=== PATIENT | female | born 1935 | race Caucasian/White ===

== ENCOUNTER 2017-03-01 11:56 | Emergency (ER) | payer MEDICARE, MEDICAID ==
[~2017-03-01] VITALS: Ht 147.3 cm; Wt 43.1 kg
[~2017-03-01 11:56] MED LIST: AMLO10TA4 PO; ATEN25TA PO; IBUP-1958 PO; LOSA1TAB2 PO; PRIM50TA10 PO; ROSU10TA PO
[2017-03-01] MEDS ORDERED: NEOMY/BACITRA/POLYMYXIN B OINT UD PACKET TP ONE ×2 (12:30→12:31)
--- NOTE | 2017-03-01 12:31 | NUR ---
PATIENT WAS SEEN BY MD FOR LACERATION NEAR HER TOE ON HER FOOT. AREA WAS CLEANSED. TRIPLE ABX OITNEMNT APPLIED, BANDAGE APPLIED. DC, WOUND AND FOLLOW UP INSTRUCTIONS GIVEN AND EXPLAINED TO PT AND WHO STATES THEY UNDERSTANDS ALL INSTRUCTIONS.
== END 2017-03-01 12:33 | disposition home or self-care (01) ==
LOC: ER 12:05
DX: S91.131A Puncture wound without foreign body of right great toe without damage to nail, initial encounter (principal); E78.5 Hyperlipidemia, unspecified; I10 Essential (primary) hypertension; Z85.3 Personal history of malignant neoplasm of breast; Z79.899 Other long term (current) drug therapy; W26.0XXA Contact with knife, initial encounter; Y93.G3 Activity, cooking and baking; Y92.89 Other specified places as the place of occurrence of the external cause; Y99.8 Other external cause status
CPT/HCPCS: A4663

== ENCOUNTER 2019-09-25 12:18 | Emergency (ER) | payer MEDICARE, MEDICAID ==
[~2019-09-25] VITALS: Ht 149.9 cm; Wt 45.8 kg
--- NOTE | 2019-09-25 12:34 | NUR ---
PATIENT WAS MSE BY DR ENCARNACION IN ROOM 01B. PATIENT A & O X4.
[2019-09-25] MEDS ORDERED: LIDOCAINE HCL 2% 20 ML VIAL IJ ONE (12:45)
--- NOTE | 2019-09-25 13:34 | NUR ---
Patient discharged to home in stable conditon. Written and verbal after care instructions given. Patient verbalizes understanding of instructions. Slow steady gait . No c/o CP. No SOB.
[2019-09-25 13:44] VITALS: BP 154/67
[2019-09-25] MEDS ORDERED: NEOMY/BACITRA/POLYMYXIN B OINT UD PACKET TP ONE ×2 (13:45)
== END 2019-09-25 13:44 | disposition home or self-care (01) ==
LOC: ER 12:18
DX: S91.201A Unspecified open wound of right great toe with damage to nail, initial encounter (principal); I10 Essential (primary) hypertension; E78.5 Hyperlipidemia, unspecified; Z79.899 Other long term (current) drug therapy; W22.8XXA Striking against or struck by other objects, initial encounter; Y93.89 Activity, other specified; Y92.89 Other specified places as the place of occurrence of the external cause; Y99.8 Other external cause status
CPT/HCPCS: 73620; A4217; A4663

== ENCOUNTER 2023-05-08 16:35 | Inpatient (IN) | payer MEDICARE, OTHER ==
[~2023-05-08] VITALS: Ht 152.4 cm; Wt 49.9 kg
[~2023-05-08 16:35] MED LIST changes: +AMLO-212 PO; -AMLO10TA4 PO; +ASPI81TA31 PO; -ATEN25TA PO; +AZIL1TAB3 PO; +CARBIDOPA PO; -IBUP-1958 PO; +LEVODOPA PO; -LOSA1TAB2 PO; -PRIM50TA10 PO; -ROSU10TA PO
[2023-05-08] MEDS ORDERED: QUET400T53 PO (17:05)
[2023-05-08] MEDS ORDERED: VITAMIN K2 +D3 (17:05)
[2023-05-08 18:40] LABS: BASOPHILS % (AUTO) 0.5 % (0.0-2.0); EOSINOPHILS # (AUTO) 0.2 K/uL (0.0-0.7); EOSINOPHILS % (AUTO) 2.5 % (0.0-7.0); HEMOGLOBIN 10.9 g/dL (10.9-14.3); MEAN CORPUSCULAR HEMOGLOBIN 32.3 uug (24.7-32.8); MEAN CORPUSCULAR HGB CONC 34 g/dL (32.3-35.6); MONOCYTES # (AUTO) 0.7 K/uL (0.1-1.30); MONOCYTES % (AUTO) 9.3 % (0.0-11.0); NEUTROPHILS # (AUTO) 4.9 K/uL (1.8-8.9); NEUTROPHILS % (AUTO) 62.7 % (38.5-71.5); PLATELET COUNT (AUTO) 326 K/uL (179-408); RED BLOOD CELL COUNT(AUTO) 3.37 MIL/uL (3.63-4.92); RED CELL DISTRIBUTION WIDTH 13.9 % (12.3-17.7); WHITE BLOOD COUNT (AUTO) 7.9 K/uL (3.8-11.8)
[2023-05-08 18:46] LABS: DIFFERENTIAL COMMENT 1
[2023-05-08 18:56] LABS: ALANINE AMINOTRANSFERASE 15 U/L (14-59); ALBUMIN 3.5 g/dL (3.4-5.0); ALKALINE PHOSPHATASE 54 U/L (50-136); ASPARTATE AMINOTRANSFERASE 14 U/L (15-37); BILIRUBIN,DIRECT 0.1 mg/dL (0.0-0.2); BILIRUBIN,TOTAL 0.2 mg/dL (0.2-1.0); CALCIUM 9.6 mg/dL (8.5-10.1); CARBON DIOXIDE 29 mmol/L (21-32); CHLORIDE 105 mmol/L (98-107); CREATININE 1.2 mg/dL (0.6-1.3); GLUCOSE 111 mg/dL (74-106); POTASSIUM 3.7 mmol/L (3.5-5.1); SODIUM SERUM 144 mmol/L (136-145); TOTAL PROTEIN, SERUM 7.2 g/dL (6.4-8.2); UREA NITROGEN, BLOOD 44 mg/dL (7-18)
[2023-05-08 19:10] LABS: ETHANOL < 3 MG/DL (0-10)
[2023-05-08 19:20] LABS: ACETAMINOPHEN < 2.0 ug/mL (10-30)
[2023-05-08] MEDS ORDERED: IV NS 1000 ML 1,000 ML IV ONE (20:30)
[2023-05-08 21:06] LABS: *BILIRUBIN,URIN NEGATIVE (NEGATIVE); *BLOOD, URINE NEGATIVE (NEGATIVE); *CLARITY,URINE CLEAR (CLEAR); *COLOR,URINE YELLOW (YELLOW); *KETONES,URINE NEGATIVE (NEGATIVE); *PROTEIN,URINE NEGATIVE (NEGATIVE); *UROBILINOGEN,URINE 0.2 E.U./dl (NORMAL); LEUKOCYTE ESTERASE ,URINE TRACE (NEGATIVE); NITRITE, URINE NEGATIVE (NEGATIVE); PH,URINE 5.5 (5.0-8.0); UGLUCOSE NEGATIVE (NEGATIVE)
[2023-05-08 21:10] LABS: BACTERIA,URINE FEW /HPF (NONE SEEN); RBC,URINE 0-3 /HPF (0-3); SQUAMOUS EPITHELIAL CELL,UR FEW /HPF (NONE SEEN)
[2023-05-08 21:19] LABS: *AMPHETAMINE, URINE NEGATIVE (NEGATIVE); *BARBITURATE, URINE NEGATIVE (NEGATIVE); *BENZODIAZEPINE, URINE NEGATIVE (NEGATIVE); *CANNABINOID, URINE NEGATIVE (NEGATIVE); *COCCAINE, URINE NEGATIVE (NEGATIVE); *OPIATE, URINE NEGATIVE (NEGATIVE); *PHENCYCLIDINE SCREEN,URINE NEGATIVE (NEGATIVE)
[2023-05-08 21:23] LABS: FENTANYL, URINE NEGATIVE (NEGATIVE)
[2023-05-08] MEDS ORDERED: SULFAMETH/TRIMETH 800/160 MG TABLET PO ONE (21:45)
[2023-05-08] MEDS ORDERED: SULFAMETH/TRIMETH 800/160 MG TABLET ONE (21:48)
[2023-05-09] MEDS ORDERED: QUETIAPINE FUMARATE 200 MG TABLET ONE (00:25)
[2023-05-09] MEDS ORDERED: QUETIAPINE FUMARATE 25 MG TABLET PO ONE (00:30)
[2023-05-09] MEDS ORDERED: diphenhydrAMINE 50 MG/1 ML VIAL ONE (00:34)
[2023-05-09] MEDS ORDERED: LORAZEPAM 2 MG/1 ML VIAL ONE (00:35)
[2023-05-09] MEDS ORDERED: HALOPERIDOL LACTATE 5 MG/1 ML VIAL ONE (00:35)
[2023-05-09] MEDS ORDERED: diphenhydrAMINE 50 MG/1 ML VIAL IM ONE (00:45)
[2023-05-09] MEDS ORDERED: LORAZEPAM 2 MG/1 ML VIAL IM ONE (00:45)
[2023-05-09] MEDS ORDERED: HALOPERIDOL LACTATE 5 MG/1 ML VIAL IM ONE (00:45)
[2023-05-09 01:20] VITALS: BP 136/45; TEMP 97.7; O2SAT 96
[2023-05-09] MEDS ORDERED: ACETAMINOPHEN 325 MG TABLET PO PRN (02:00)
[2023-05-09] MEDS ORDERED: MAG HYDROX/AL HYDROX/SIMETH 30 ML LIQUID UDC PO PRN (02:00)
[2023-05-09] MEDS ORDERED: MAGNESIUM HYDROXIDE 30 ML LIQUID UDC PO PRN (02:00)
[2023-05-09] MEDS ORDERED: BLOOD SUGAR DIAGNOSTIC 1 EACH STRIP VI ONE (02:00)
[2023-05-09] MEDS ORDERED: CARB1TAB31 PO (05:57)
[2023-05-09 08:01] VITALS: BP 124/52; TEMP 98; O2SAT 96
[2023-05-09] MEDS: ASPIRIN 81 MG TAB.CHEW PO SCH (09:00)
[2023-05-09] MEDS: CARBIDOPA/LEVODOPA 10-100MG TABLET PO SCH ×2 (09:00→16:53)
[2023-05-09] MEDS: AMLODIPINE 5 MG TABLET PO SCH (09:00)
[2023-05-09] MEDS: DIVALPROEX 125 MG TABLET.DR PO SCH (13:34)
[2023-05-09 16:23] VITALS: BP 152/56; TEMP 98; O2SAT 97
[2023-05-09 20:00] VITALS: BP 144/44; TEMP 98.1; O2SAT 99
[2023-05-09] MEDS: QUETIAPINE FUMARATE 25 MG TABLET PO SCH (20:32)
[2023-05-10 08:31] VITALS: BP 147/59; TEMP 98.4; O2SAT 98
[2023-05-10] MEDS: AMLODIPINE 5 MG TABLET PO SCH (09:26)
[2023-05-10] MEDS: DIVALPROEX 125 MG TABLET.DR PO SCH ×3 (09:26→16:00)
[2023-05-10] MEDS: ASPIRIN 81 MG TAB.CHEW PO SCH (09:27)
[2023-05-10] MEDS: CARBIDOPA/LEVODOPA 10-100MG TABLET PO SCH ×2 (09:28→16:00)
[2023-05-10] MEDS: LORAZEPAM 1 MG TABLET PO PRN (13:36)
[2023-05-10 15:14] VITALS: BP 142/51; TEMP 98.4; O2SAT 99
[2023-05-10 16:07] VITALS: BP 136/56; O2SAT 99
[2023-05-10] MEDS: QUETIAPINE FUMARATE 25 MG TABLET PO SCH (19:59)
[2023-05-10 20:00] VITALS: BP 123/54; TEMP 98.3; O2SAT 97
[2023-05-11] MEDS: AMLODIPINE 5 MG TABLET PO SCH (08:29)
[2023-05-11] MEDS: DIVALPROEX 125 MG TABLET.DR PO SCH ×3 (08:29→16:45)
[2023-05-11] MEDS: ASPIRIN 81 MG TAB.CHEW PO SCH (08:29)
[2023-05-11] MEDS: CARBIDOPA/LEVODOPA 10-100MG TABLET PO SCH ×2 (08:29→16:45)
[2023-05-11 08:42] VITALS: BP 138/52; TEMP 98; O2SAT 96
[2023-05-11 15:41] VITALS: BP 139/50; TEMP 98; O2SAT 98
[2023-05-11] MEDS: QUETIAPINE FUMARATE 25 MG TABLET PO SCH (20:26)
[2023-05-11] MEDS: REMEDY ESSENTIAL ZINC PASTE 113 GM TOP SCH (20:45)
[2023-05-12 07:30] VITALS: BP 107/51; TEMP 98; O2SAT 98
[2023-05-12] MEDS: AMLODIPINE 5 MG TABLET PO SCH (09:00)
[2023-05-12] MEDS: DIVALPROEX 125 MG TABLET.DR PO SCH ×3 (09:31→17:31)
[2023-05-12] MEDS: ASPIRIN 81 MG TAB.CHEW PO SCH (09:31)
[2023-05-12] MEDS: CARBIDOPA/LEVODOPA 10-100MG TABLET PO SCH ×2 (09:31→17:31)
[2023-05-12] MEDS: GLUCERNA SHAKE 237 ML CAN PO SCH (09:32)
[2023-05-12] MEDS: REMEDY ESSENTIAL ZINC PASTE 113 GM TOP SCH ×2 (09:33→21:28)
[2023-05-12] MEDS: MUPIROCIN 2% OINT 22 GM TUBE TP SCH (09:33)
[2023-05-12] MEDS: LORAZEPAM 1 MG TABLET PO PRN ×2 (15:06→21:28)
[2023-05-12 15:28] VITALS: BP 142/58; TEMP 98; O2SAT 98
[2023-05-12 20:25] VITALS: BP 113/57; TEMP 98.1; O2SAT 96
[2023-05-12] MEDS: QUETIAPINE FUMARATE 25 MG TABLET PO SCH (21:28)
[2023-05-13 10:22] VITALS: BP 141/66; TEMP 98.2
[2023-05-13] MEDS: CARBIDOPA/LEVODOPA 10-100MG TABLET PO SCH ×2 (10:26→17:05)
[2023-05-13] MEDS: ASPIRIN 81 MG TAB.CHEW PO SCH (10:27)
[2023-05-13] MEDS: DIVALPROEX 125 MG TABLET.DR PO SCH ×3 (10:27→17:05)
[2023-05-13] MEDS: GLUCERNA SHAKE 237 ML CAN PO SCH (10:27)
[2023-05-13] MEDS: AMLODIPINE 5 MG TABLET PO SCH (10:27)
[2023-05-13] MEDS: MUPIROCIN 2% OINT 22 GM TUBE TP SCH (10:28)
[2023-05-13] MEDS: REMEDY ESSENTIAL ZINC PASTE 113 GM TOP SCH ×2 (10:28→21:05)
[2023-05-13 19:59] VITALS: BP 144/60; TEMP 98.2; O2SAT 95
[2023-05-13] MEDS: QUETIAPINE FUMARATE 25 MG TABLET PO SCH (21:04)
[2023-05-13] MEDS: LORAZEPAM 1 MG TABLET PO PRN (21:05)
[2023-05-14 08:17] VITALS: BP 121/58; TEMP 97.5; O2SAT 98
[2023-05-14] MEDS: CARBIDOPA/LEVODOPA 10-100MG TABLET PO SCH ×2 (08:50→17:27)
[2023-05-14] MEDS: DIVALPROEX 125 MG TABLET.DR PO SCH ×3 (08:50→17:27)
[2023-05-14] MEDS: ASPIRIN 81 MG TAB.CHEW PO SCH (08:50)
[2023-05-14] MEDS: GLUCERNA SHAKE 237 ML CAN PO SCH (08:51)
[2023-05-14] MEDS: AMLODIPINE 5 MG TABLET PO SCH (08:51)
[2023-05-14] MEDS: MUPIROCIN 2% OINT 22 GM TUBE TP SCH (08:52)
[2023-05-14] MEDS: REMEDY ESSENTIAL ZINC PASTE 113 GM TOP SCH ×2 (08:52→20:26)
[2023-05-14 16:48] VITALS: BP 98/60; TEMP 98; O2SAT 98
[2023-05-14 20:10] VITALS: BP 114/45; TEMP 98.1; O2SAT 97
[2023-05-14] MEDS: QUETIAPINE FUMARATE 25 MG TABLET PO SCH (20:25)
[2023-05-15] MEDS: DIVALPROEX 125 MG TABLET.DR PO SCH ×3 (08:49→17:03)
[2023-05-15] MEDS: ASPIRIN 81 MG TAB.CHEW PO SCH (08:49)
[2023-05-15] MEDS: GLUCERNA SHAKE 237 ML CAN PO SCH (08:49)
[2023-05-15] MEDS: CARBIDOPA/LEVODOPA 10-100MG TABLET PO SCH ×2 (08:50→17:04)
[2023-05-15] MEDS: AMLODIPINE 5 MG TABLET PO SCH (09:00)
[2023-05-15 09:06] VITALS: BP 157/56; TEMP 98; O2SAT 97
[2023-05-15] MEDS: MUPIROCIN 2% OINT 22 GM TUBE TP SCH (09:57)
[2023-05-15] MEDS: REMEDY ESSENTIAL ZINC PASTE 113 GM TOP SCH ×2 (09:58→20:42)
[2023-05-15 16:10] VITALS: BP 149/58; TEMP 98; O2SAT 97
[2023-05-15 20:19] VITALS: BP 143/57; TEMP 98; O2SAT 96
[2023-05-15] MEDS: QUETIAPINE FUMARATE 25 MG TABLET PO SCH (20:42)
[2023-05-15] MEDS: ZOLPIDEM 5 MG TABLET PO PRN (21:26)
[2023-05-16 07:42] LABS: BASOPHILS % (AUTO) 0.5 % (0.0-2.0); EOSINOPHILS # (AUTO) 0.2 K/uL (0.0-0.7); EOSINOPHILS % (AUTO) 3.8 % (0.0-7.0); HEMATOCRIT 30.1 % (31.2-41.9); HEMOGLOBIN 10.6 g/dL (10.9-14.3); LYMPHOCYTES # (AUTO) 1.8 K/uL (0.8-4.8); LYMPHOCYTES % (AUTO) 30.4 % (20.5-51.5); MEAN CORPUSCULAR HEMOGLOBIN 32.8 uug (24.7-32.8); MEAN CORPUSCULAR HGB CONC 35 g/dL (32.3-35.6); MEAN CORPUSCULAR VOLUME 93.4 fL (75.5-95.3); MONOCYTES # (AUTO) 0.6 K/uL (0.1-1.30); MONOCYTES % (AUTO) 10.5 % (0.0-11.0); NEUTROPHILS # (AUTO) 3.3 K/uL (1.8-8.9); NEUTROPHILS % (AUTO) 54.8 % (38.5-71.5); PLATELET COUNT (AUTO) 273 K/uL (179-408); RED BLOOD CELL COUNT(AUTO) 3.23 MIL/uL (3.63-4.92); RED CELL DISTRIBUTION WIDTH 13.6 % (12.3-17.7); WHITE BLOOD COUNT (AUTO) 6.1 K/uL (3.8-11.8)
[2023-05-16 07:43] LABS: DIFFERENTIAL COMMENT 1
[2023-05-16 07:55] LABS: ALANINE AMINOTRANSFERASE 21 U/L (14-59); ALBUMIN 2.9 g/dL (3.4-5.0); ALKALINE PHOSPHATASE 53 U/L (50-136); ASPARTATE AMINOTRANSFERASE 12 U/L (15-37); BILIRUBIN,TOTAL 0.4 mg/dL (0.2-1.0); CALCIUM 9.3 mg/dL (8.5-10.1); CARBON DIOXIDE 33 mmol/L (21-32); CHLORIDE 105 mmol/L (98-107); CREATININE 1.1 mg/dL (0.6-1.3); GLUCOSE 98 mg/dL (74-106); POTASSIUM 3.7 mmol/L (3.5-5.1); SODIUM SERUM 140 mmol/L (136-145); TOTAL PROTEIN, SERUM 6.3 g/dL (6.4-8.2); UREA NITROGEN, BLOOD 26 mg/dL (7-18); VALPROIC ACID 47 ug/mL (50-100)
[2023-05-16] MEDS: ASPIRIN 81 MG TAB.CHEW PO SCH (08:25)
[2023-05-16] MEDS: DIVALPROEX 125 MG TABLET.DR PO SCH ×3 (08:26→16:50)
[2023-05-16] MEDS: CARBIDOPA/LEVODOPA 10-100MG TABLET PO SCH ×2 (08:26→16:50)
[2023-05-16] MEDS: AMLODIPINE 5 MG TABLET PO SCH (08:27)
[2023-05-16] MEDS: MUPIROCIN 2% OINT 22 GM TUBE TP SCH (08:27)
[2023-05-16] MEDS: REMEDY ESSENTIAL ZINC PASTE 113 GM TOP SCH ×2 (09:20→21:04)
[2023-05-16] MEDS: GLUCERNA SHAKE 237 ML CAN PO SCH ×3 (09:20→16:50)
[2023-05-16 16:19] VITALS: BP 112/58; TEMP 98.1; O2SAT 97
[2023-05-16 20:06] VITALS: BP 118/52; TEMP 98.1; O2SAT 96
[2023-05-16] MEDS: QUETIAPINE FUMARATE 25 MG TABLET PO SCH (21:01)
[2023-05-16] MEDS: ZOLPIDEM 5 MG TABLET PO PRN (21:02)
[2023-05-17 07:30] VITALS: BP 167/58; TEMP 98; O2SAT 99
[2023-05-17] MEDS: CARBIDOPA/LEVODOPA 10-100MG TABLET PO SCH ×2 (09:02→17:03)
[2023-05-17] MEDS: AMLODIPINE 5 MG TABLET PO SCH (09:03)
[2023-05-17] MEDS: ASPIRIN 81 MG TAB.CHEW PO SCH (09:03)
[2023-05-17] MEDS: DIVALPROEX 125 MG TABLET.DR PO SCH ×3 (09:03→17:03)
[2023-05-17] MEDS: MUPIROCIN 2% OINT 22 GM TUBE TP SCH (09:04)
[2023-05-17] MEDS: GLUCERNA SHAKE 237 ML CAN PO SCH ×2 (09:04→17:03)
[2023-05-17] MEDS: REMEDY ESSENTIAL ZINC PASTE 113 GM TOP SCH ×2 (09:41→20:17)
[2023-05-17 10:05] VITALS: BP 158/64; TEMP 98.5; O2SAT 97
[2023-05-17 10:19] VITALS: BP 140/49; O2SAT 100
[2023-05-17 11:11] VITALS: BP 131/53; TEMP 98.5; O2SAT 98
[2023-05-17 15:41] VITALS: BP 137/58; TEMP 98.2; O2SAT 98
[2023-05-17 20:12] VITALS: BP 111/64; TEMP 98.1; O2SAT 98
[2023-05-17] MEDS: LORAZEPAM 1 MG TABLET PO PRN (20:16)
[2023-05-17] MEDS: QUETIAPINE FUMARATE 25 MG TABLET PO SCH (20:17)
[2023-05-18 07:46] VITALS: BP 137/49; TEMP 97.8; O2SAT 98
[2023-05-18] MEDS: CARBIDOPA/LEVODOPA 10-100MG TABLET PO SCH ×2 (09:08→17:32)
[2023-05-18] MEDS: ASPIRIN 81 MG TAB.CHEW PO SCH (09:08)
[2023-05-18] MEDS: DIVALPROEX 125 MG TABLET.DR PO SCH ×3 (09:09→17:32)
[2023-05-18] MEDS: AMLODIPINE 5 MG TABLET PO SCH (09:11)
[2023-05-18] MEDS: REMEDY ESSENTIAL ZINC PASTE 113 GM TOP SCH ×2 (09:12→20:21)
[2023-05-18] MEDS: GLUCERNA SHAKE 237 ML CAN PO SCH ×2 (09:12→17:33)
[2023-05-18] MEDS: MUPIROCIN 2% OINT 22 GM TUBE TP SCH (10:40)
[2023-05-18] MEDS: LORAZEPAM 1 MG TABLET PO PRN (15:47)
[2023-05-18 16:21] VITALS: BP 119/66; TEMP 98.2; O2SAT 98
[2023-05-18 20:00] VITALS: BP 134/62; TEMP 98; O2SAT 96
[2023-05-18] MEDS: QUETIAPINE FUMARATE 25 MG TABLET PO SCH (20:09)
[2023-05-18] MEDS: ZOLPIDEM 5 MG TABLET PO PRN (20:58)
[2023-05-19 07:38] VITALS: BP 136/71; TEMP 97.8; O2SAT 99
[2023-05-19 09:51] VITALS: BP 136/71
[2023-05-19] MEDS: ASPIRIN 81 MG TAB.CHEW PO SCH (09:51)
[2023-05-19] MEDS: AMLODIPINE 5 MG TABLET PO SCH (09:51)
[2023-05-19] MEDS: DIVALPROEX 125 MG TABLET.DR PO SCH (09:51)
[2023-05-19] MEDS: CARBIDOPA/LEVODOPA 10-100MG TABLET PO SCH (09:51)
[2023-05-19] MEDS: MUPIROCIN 2% OINT 22 GM TUBE TP SCH (09:52)
[2023-05-19] MEDS: REMEDY ESSENTIAL ZINC PASTE 113 GM TOP SCH (09:52)
[2023-05-19] MEDS: GLUCERNA SHAKE 237 ML CAN PO SCH (09:52)
== END 2023-05-19 11:30 | DRG 885 ==
LOC: ER 16:38 → GPS 22:00
PROVIDERS: ADMIT Psychiatry & Neurology Psychosomatic Medicine; ATTEND Internal Medicine
DX: F31.9 Bipolar disorder, unspecified (principal); Z85.3 Personal history of malignant neoplasm of breast; Z20.822 Contact with and (suspected) exposure to COVID-19; E78.5 Hyperlipidemia, unspecified; I10 Essential (primary) hypertension; Z73.6 Limitation of activities due to disability; M62.81 Muscle weakness (generalized); F41.9 Anxiety disorder, unspecified; F29 Unspecified psychosis not due to a substance or known physiological condition; M79.662 Pain in left lower leg; S81.802A Unspecified open wound, left lower leg, initial encounter; X58.XXXA Exposure to other specified factors, initial encounter; Y93.9 Activity, unspecified; Y92.009 Unspecified place in unspecified non-institutional (private) residence as the place of occurrence of the external cause; M81.0 Age-related osteoporosis without current pathological fracture
CPT/HCPCS: 36415; 70450; 80164; 85025; A6209; G0480; J1200; J1630; J2060; J7040